=== PATIENT | female | born 1965 ===

== ENCOUNTER 2018-12-12 22:00 | Emergency (ER) | payer OTHER ==
[~2018-12-12] VITALS: Ht 157.5 cm; Wt 74.8 kg
[~2018-12-12 22:00] MED LIST: CATAFLAM50 MG PO; CIPRO500 MG PO; ENALAPRIL MALEA20 MG PO; GLIPIZIDE10 MG PO; METFORMIN HCL850 MG PO; MUCINEX1200 MG/BO PO; ORPH100T PO
== END 2018-12-13 04:27 | disposition home or self-care (01) ==
LOC: ER 22:00
DX: R55 Syncope and collapse (principal)

== ENCOUNTER 2018-12-13 12:53 | Emergency (ER) | payer OTHER ==
[~2018-12-13] VITALS: Ht 160 cm; Wt 78.9 kg
== END 2018-12-13 16:11 | disposition home or self-care (01) ==
LOC: ER 12:53
DX: R55 Syncope and collapse (principal)